=== PATIENT | female | born 2000 | race Caucasian/White ===

== ENCOUNTER 2021-06-20 15:44 | Emergency (ER) | payer OTHER ==
[2021-06-20] MEDS ORDERED: BACITRACIN 0.9 GM PACKET ONE (15:48)
[2021-06-20] MEDS ORDERED: TETRACAINE 0.5% OPHTH SOLN 2 ML BOTTLE ONE (16:19)
[2021-06-20 17:06] VITALS: BP 124/67; PULSE 90; TEMP 97.9; BMI 29.7
== END 2021-06-20 17:09 | disposition short-term general hospital (02) ==
LOC: JER 15:44
DX: H57.12 Ocular pain, left eye (principal)
CPT/HCPCS: 99285-25

== ENCOUNTER 2022-08-19 18:12 | Emergency (ER) | payer OTHER ==
[2022-08-19 18:48] VITALS: BP 129/77; PULSE 68; RESP 20; TEMP 98.3; BMI 30.9
[2022-08-19] MEDS ORDERED: KETOROLAC TROMETHAMINE 30 MG/1 ML VIAL IM ONE (20:15)
[2022-08-19] MEDS ORDERED: KETOROLAC TROMETHAMINE 30 MG/1 ML VIAL ONE (20:28)
== END 2022-08-20 00:07 | disposition home or self-care (01) ==
LOC: JER 18:12
PROC: 3E023GC Introduction of Other Therapeutic Substance into Muscle, Percutaneous Approach (ICD-10-PCS; principal; 2022-08-19)
DX: M54.50 Low back pain, unspecified (principal)
CPT/HCPCS: 72131-TC; 84703; 99284-25

== ENCOUNTER 2022-08-20 00:18 | Emergency (ER) | payer OTHER ==
[2022-08-20 00:33] VITALS: BMI 30.9
[2022-08-20 06:11] VITALS: BP 114/63; PULSE 62; RESP 16; TEMP 98.2
[2022-08-20] MEDS ORDERED: IBUPROFEN 600 MG TABLET (FP) PO ONE ×2 (07:46→07:54)
[2022-08-20] MEDS ORDERED: LIDOCAINE 5% TOPICAL PATCH TP ONE (07:46)
[2022-08-20] MEDS ORDERED: LIDOCAINE 5% TOPICAL PATCH ONE (07:54)
[2022-08-20] MEDS ORDERED: ONDANSETRON *ODT* 4 MG TABLET ONE ×3 (10:00→10:08)
[2022-08-20] MEDS ORDERED: ONDANSETRON *ODT* 4 MG TABLET SL ONE (10:00)
[2022-08-20] MEDS ORDERED: LIDOCAINE PATCH REMOVAL MC SCH (22:00)
== END 2022-08-20 10:19 | disposition home or self-care (01) ==
LOC: JER 00:18
DX: M54.50 Low back pain, unspecified (principal)
CPT/HCPCS: 72170-TC-FY; 99283-25; Q0162